=== PATIENT | female | born 1990 | race Two or more races ===

== ENCOUNTER 2019-12-25 19:32 | Emergency (ER) | payer MEDICAID ==
[~2019-12-25] VITALS: Ht 160 cm; Wt 107.0 kg
[2019-12-26 00:55] VITALS: BP 132/97
== END 2019-12-26 01:19 | disposition home or self-care (01) ==
LOC: ER 19:34
DX: T23.101A Burn of first degree of right hand, unspecified site, initial encounter (principal); Z88.0 Allergy status to penicillin; Z88.6 Allergy status to analgesic agent; X15.2XXA Contact with hotplate, initial encounter; Y93.89 Activity, other specified; Y92.89 Other specified places as the place of occurrence of the external cause; Y99.8 Other external cause status